=== PATIENT | male | born 1965 | race Caucasian/White ===

== ENCOUNTER 2019-02-19 08:24 | Emergency (ER) | payer BC ==
[2019-02-19] MEDS ORDERED: HYDROCODONE/ACETAMINOPHEN 5-325 MG TABLET PO ONE (10:29)
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
--- NOTE | 2019-02-19 11:19 | RADIOLOGY REPORT (SQ) ---
EXAM DESCRIPTION: CHEST 2 VIEWS COMPLETED DATE/TIME: 02/19/2019 10:55 am REASON FOR STUDY: left rib pain, fall COMPARISON: None. TECHNIQUE: Frontal and lateral radiographic views of the chest acquired. NUMBER OF VIEWS: Two view. LIMITATIONS: None. FINDINGS: LUNGS AND PLEURA: Subsegmental atelectasis left base. No pneumothorax appreciated. MEDIASTINUM AND HILAR STRUCTURES: No masses or contour abnormalities. HEART AND VASCULAR STRUCTURES: Heart normal size. No evidence for failure. BONES: 7th left posterolateral minimally displaced rib fracture. Also likely the 8th. HARDWARE: None in the chest. OTHER: No other significant finding. IMPRESSION: Left rib fractures, at least 7th and 8th. No pneumothorax. Adjacent contusion/ subsegm ental atelectasis. TECHNICAL DOCUMENTATION: JOB ID: [id number] [employer]- All Rights Reserved Reading location - IP/workstation name: [email or web address]
--- NOTE | 2019-02-19 12:41 | RADIOLOGY REPORT (SQ) ---
EXAM DESCRIPTION: CT CHEST WITHOUT COMPLETED DATE/TIME: 02/19/2019 12:24 pm REASON FOR STUDY: confirmed left rib fx on left, fall COMPARISON: Same day chest radiograph TECHNIQUE: CT scan performed of the chest without intravenous contrast. Images reviewed with lung, soft tissue and bone windows. Reconstructed coronal and sagittal MPR images reviewed. All images st ored on PACS. All CT scanners at this facility use dose modulation, iterative reconstruction, and/or weight based d osing when appropriate to reduce radiation dose to as low as reasonably achievable (ALARA). [facility]: Dose Right [facility]: CareDose [facility]: Dose Right [facility]: Teradose 4D [facility]: Smart Sparkfly RADIATION DOSE: CT Rad equipment meets quality standard of care and radiation dose reduction techniq ues were employed. CTDIvol: 6.7 mGy. DLP: 271 mGy-cm. mGy. LIMITATIONS: No technical limitations. FINDINGS: LUNGS AND PLEURA: Linear bibasilar atelectasis, left greater than right. Otherwise, no fo kt consolidation, pleural effusion or pneumothorax. No pulmonary mass. HILAR AND MEDIASTINAL STRUCTURES: No identified masses or abnormal nodes. No obvious aneurysm. HEART AND VASCULAR STRUCTURES: No aneurysm. Mild scattered calcified plaque. No pericardial effusio n. UPPER ABDOMEN: No significant findings. Limited exam. THYROID AND OTHER SOFT TISSUES: No masses. No adenopathy. BONES: Mildly minimally displaced posterolateral left 7th rib fracture. Nondisplaced posterolateral left 8th rib fracture. Minimally displaced left 9th rib fracture. Displaced posterolateral left 10t h rib fracture by a 1 shaft width. Mildly displaced posterior left 11th rib fracture. No additional fracture or dislocation is visualized. Mild degenerative disc disease of the thoracic spine. HARDWARE: None in the chest. OTHER: Minimal amount of subcutaneous emphysema of the posterolateral inferior left hemithorax overly ing the aforementioned rib fractures. IMPRESSION: Left 7th through 11th rib fractures, as detailed above, with minimal overlying subcutane ous emphysema. No pneumothorax. TECHNICAL DOCUMENTATION: JOB ID: [id number] Quality ID # [id number]: Final reports with documentation of one or more dose reduction techniques (e.g., Au tomated exposure control, adjustment of the mA and/or kV according to patient size, use of iterative reconstruction technique) 2010 [employer]- All Rights Reserved Reading location - IP/workstation name: [email or web address]
[2019-02-19 12:44] LABS: ABSOLUTE LYMPHOCYTES (AUTO) 1.3 10^3/uL (0.5-4.7); ABSOLUTE MONOCYTES (AUTO) 0.9 10^3/uL (0.1-1.4); ABSOLUTE NEUT (AUTO) 6.8 10^3/uL (1.7-8.2); BASOPHILS % (AUTO) 0.5 % (0-2); EOSINOPHILS % (AUTO) 0.1 % (0-6); HEMATOCRIT 42.8 % (37.9-51.0); HEMOGLOBIN 14.5 g/dL (13.5-17.0); LYMPHOCYTES % (AUTO) 14.1 % (13-45); MEAN CORPUSCULAR HEMOGLOBIN 32.1 pg (27.0-33.4); MEAN CORPUSCULAR HGB CONC 33.9 g/dL (32.0-36.0); MEAN CORPUSCULAR VOLUME 95 fl (80-97); MONOCYTES % (AUTO) 9.6 % (3-13); PLATELET COUNT 214 10^3/uL (150-450); RED BLOOD COUNT 4.52 10^6/uL (4.35-5.55); RED CELL DISTRIBUTION WIDTH 13.4 % (11.5-14.0); SEGMENTED NEUTROPHILS % (AUTO) 75.7 % (42-78); TOTAL CELLS COUNTED % (AUTO) 100 %
[2019-02-19 12:48] LABS: APPEARANCE,URINE SLIGHTLY-CLOUDY; BILIRUBIN,URINE NEGATIVE (NEGATIVE); COLOR,URINE AMBER; GLUCOSE, URINE NEGATIVE (NEGATIVE); KETONES,URINE 20 mg/dL (NEGATIVE); LEUKOCYTE ESTERASE,URINE NEGATIVE (NEGATIVE); NITRITE,URINE NEGATIVE (NEGATIVE); PROTEIN,URINE NEGATIVE (NEGATIVE); URINE SPECIFIC GRAVITY 1.024
[2019-02-19 12:57] LABS: ALANINE AMINOTRANSFERASE 54 U/L (21-72); ALBUMIN 4.8 g/dL (3.5-5.0); ALKALINE PHOSPHATASE 82 U/L (38-126); ANION GAP 14 (5-19); ASPARTATE AMINO TRANSFERASE 45 U/L (17-59); BILIRUBIN,DIRECT 0.4 mg/dL (0.0-0.4); BLOOD UREA NITROGEN 11 mg/dL (7-20); CALCIUM 9.7 mg/dL (8.4-10.2); CARBON DIOXIDE 25 mmol/L (22-30); CHLORIDE 97 mmol/L (98-107); GLUCOSE 79 mg/dL (75-110); POTASSIUM 5.9 mmol/L (3.6-5.0); TOTAL PROTEIN 7.6 g/dL (6.3-8.2)
--- NOTE | 2019-02-19 14:14 | PDOC CONSULTATION ---
Consultation Consult Date: 02/19/19 Provider Consulted: BARNEY GIBBS Consult reason:: left rib fractures History of Present Illness History of Present Illness: JASON ESCUDERO is a 53 year old male who tripped on 3 steps and fell on his left ribcage yesterday at 2 pm. C/O severe left back pains worse on coughing and difficulty sleeping because of the pains. Smokes a ppd. Past Medical History Cardiac Medical History: Reports: None Pulmonary Medical History: Reports: None EENT Medical History: Reports: None Neurological Medical History: Reports: None Endocrine Medical History: Reports: None Renal/ Medical History: Reports: None Malignancy Medical History: Reports: None GI Medical History: Reports: None Musculoskeltal Medical History: Reports: None Skin Medical History: Reports: None Psychiatric Medical History: Reports: None Traumatic Medical History: Reports: None Infectious Medical History: Reports: None Social History Lives with: Spouse/Significant other Smoking Status: Current Every Day Smoker Family History Family History: None Parental Family History Reviewed: Yes Children Family History Reviewed: No Sibling(s) Family History Reviewed.: No Medication/Allergy Allergies/Adverse Reactions: No Known Allergies Allergy (Unverified 02/19/19 08:25) Review of Systems Constitutional: PRESENT: as per HPI Respiratory: PRESENT: other - left back pains Gastrointestinal: PRESENT: other - no pains Genitourinary: PRESENT: other - no dysuria Musculoskeletal: PRESENT: back pain Neurological: PRESENT: other - no weakness Psychiatric: PRESENT: other - no anxiety Hematologic/Lymphatic: PRESENT: other - no easy bruising Physical Exam Vital Signs: Temp Pulse Resp BP Pulse Ox 98.3 F 94 16 151/82 H 100 02/19/19 11:36 02/19/19 11:36 02/19/19 11:36 02/19/19 11:36 02/19/19 11:36 Intake & Output 02/18/19 02/19/19 02/20/19 06:59 06:59 06:59 Weight 68.7 kg General appearance: PRESENT: no acute distress Head exam: PRESENT: atraumatic Eye exam: PRESENT: conjunctiva pink Mouth exam: PRESENT: moist Neck exam: PRESENT: full ROM Respiratory exam: PRESENT: chest wall tenderness - left back with mild bruising. Has tenderness Cardiovascular exam: PRESENT: RRR Pulses: PRESENT: normal radial pulses Vascular exam: PRESENT: normal capillary refill Rectal exam: PRESENT: deferred Extremities exam: PRESENT: full ROM Musculoskeletal exam: PRESENT: ambulatory Neurological exam: PRESENT: alert, oriented to person, oriented to place, orie nted to time, oriented to situation Psychiatric exam: PRESENT: appropriate affect Skin exam: PRESENT: normal color, warm Results Laboratory Results: 02/19/19 12:04 02/19/19 12:04 02/19/19 02/19/19 02/19/19 12:04 12:04 12:11 WBC 9.0 RBC 4.52 Hgb 14.5 Hct 42.8 MCV 95 MCH 32.1 MCHC 33.9 RDW 13.4 Plt Count 214 Seg Neutrophils % 75.7 Lymphocytes % 14.1 Monocytes % 9.6 Eosinophils % 0.1 Basophils % 0.5 Absolute Neutrophils 6.8 Absolute Lymphocytes 1.3 Absolute Monocytes 0.9 Absolute Eosinophils 0.0 Absolute Basophils 0.0 Sodium 136.0 L Potassium 5.9 H Chloride 97 L Carbon Dioxide 25 Anion Gap 14 BUN 11 Creatinine 0.79 Est GFR ( Amer) > 60 Est GFR (Non-Af Amer) > 60 Glucose 79 Calcium 9.7 Total Bilirubin 1.0 AST 45 ALT 54 Alkaline Phosphatase 82 Total Protein 7.6 Albumin 4.8 Urine Color RAMAKRISHNA Urine Appearance SLIGHTLY-CLOUDY Urine pH 5.0 Ur Specific [place] 1.024 Urine Protein NEGATIVE Urine Glucose (UA) NEGATIVE Urine Ketones 20 H Urine Blood NEGATIVE Urine Nitrite NEGATIVE Ur Leukocyte Esterase NEGATIVE Urine WBC (Auto) 1 Urine RBC (Auto) 1 Impressions: Chest X-Ray 02/19/19 10:27 IMPRESSION: Left rib fractures, at least 7th and 8th. No pneumothorax. Adjacent contusion/ subsegmental atelectasis. Chest CT 02/19/19 11:56 IMPRESSION: Left 7th through 11th rib fractures, as detailed above, with minimal overlying subcutaneous emphysema. No pneumothorax. Assessment & Plan - Diagnosis (1) Ribs, multiple fractures Qualifiers: Encounter type: initial encounter Fracture type: closed Laterality: left Qualified Code(s): S22.42XA - Multiple fractures of ribs, left side, initial encounter for closed fracture Is this a current diagnosis for this admission?: Yes - Time Time Spent: 30 to 50 Minutes - Plan Summary Plan Summary: A/ 53 yo with fx left ribs 7th to 11th from trauma yesterday. XRAYs and CT scan showed these fx but no effusion or pneumothorax Pulse Ox is 100% on RA P/ OK to send home on pain meds Encourage Incentive Spirometry. Give apparatus. Talked to patient and about taking pain meds to allow incentive spirometry,coughing to prevent pneumonia Will need a follow up CXR in 48-72 hrs. Any fever,increasing pains or shortness of breath to come back right away to ER. D/W JORGE L
[2019-02-19 14:36] VITALS: BP 144/75
== END 2019-02-19 14:34 | disposition home or self-care (01) ==
LOC: ER 08:24
DX: S22.42XA Multiple fractures of ribs, left side, initial encounter for closed fracture (principal); R07.81 Pleurodynia; W01.0XXA Fall on same level from slipping, tripping and stumbling without subsequent striking against object, initial encounter; F17.210 Nicotine dependence, cigarettes, uncomplicated
CPT/HCPCS: 36415; 71046; 71250; 80053; 81001; 85025; 99284

== ENCOUNTER 2019-02-21 06:26 | Emergency (ER) | payer BC ==
--- NOTE | 2019-02-21 07:32 | RADIOLOGY REPORT (SQ) ---
EXAM DESCRIPTION: XR RIBS UNILATERAL WITH CHEST COMPLETED DATE/TME: 02/21/2019 06:56 CLINICAL HISTORY: 53 years Male, follow up from multiple rib fx COMPARISON: CT, two days prior. NUMBER OF VIEWS/TECHNIQUE: 4 FINDINGS: Mildly displaced left seventh-11th rib fractures, small left lower lobar subpleural pulmonary contusion. No significant change. No pneumothorax. No acute cardiopulmonary findings. IMPRESSION: Mildly displaced left seventh-11th rib fractures, small left lower lobar subpleural pulmonary contusion. No significant change.
--- NOTE | 2019-02-21 10:51 | ER Document Report ---
ED Respiratory Problem - General Chief Complaint: Rib Pain Stated Complaint: FOLLOW UP Time Seen by Provider: 02/21/19 10:35 TRAVEL OUTSIDE OF THE [place] IN LAST 30 DAYS: No - HPI Notes: Patient is a 53-year-old male who presents to the emergency department for a repeat chest x-ray and a repeat potassium level. Patient was seen here 2 days ago and diagnosed with multiple rib fractures on the left. Patient states ribs 7 through 11 were fractured after a fall. Patient states he has been using his incentive spirometer regularly over the past 2 days. Patient states that the Bouse is not helping with his discomfort and reports muscle spasms around the left rib area. Patient states he has been hydrating and drinking plenty of fluids. Patient denies shortness of breath or cough. Patient states the left rib pain is worse with cough or movement. - Related Data Allergies/Adverse Reactions: No Known Allergies Allergy (Verified 02/21/19 08:50) Past Medical History - General Information source: Patient - Social History Smoking Status: Current Every Day Smoker Frequency of alcohol use: Heavy Drug Abuse: None Family History: None Patient has suicidal ideation: No Patient has homicidal ideation: No - Past Medical History Cardiac Medical History: Reports: None Pulmonary Medical History: Reports: None EENT Medical History: Reports: None Neurological Medical History: Reports: None Endocrine Medical History: Reports: None Renal/ Medical History: Reports: None. Denies: Hx Peritoneal Dialysis Malignancy Medical History: Reports None GI Medical History: Reports: None Musculoskeletal Medical History: Reports None Skin Medical History: Reports None Psychiatric Medical History: Reports: None Traumatic Medical History: Reports: None Infectious Medical History: Reports: None Past Surgical History: Reports: Hx Oral Surgery Review of Systems - Review of Systems Constitutional: No symptoms reported EENT: No symptoms reported Cardiovascular: No symptoms reported Respiratory: See HPI Gastrointestinal: No symptoms reported Genitourinary: No symptoms reported Male Genitourinary: No symptoms reported Musculoskeletal: No symptoms reported Skin: No symptoms reported Hematologic/Lymphatic: No symptoms reported Neurological/Psychological: No symptoms reported Physical Exam - Vital signs Vitals: Temp Pulse Resp BP Pulse Ox 97.7 F 102 H 18 132/79 H 99 02/21/19 06:34 02/21/19 06:34 02/21/19 06:34 02/21/19 06:34 02/21/19 06:34 - Notes Notes: GENERAL: Well-appearing, well-nourished and in no acute distress. HEAD: Atraumatic, normocephalic. EYES: Pupils equal round and reactive to light, extraocular movements intact, sclera anicteric, conjunctiva are normal. ENT: Moist mucous membranes. NECK: Normal range of motion, supple without lymphadenopathy or JVD. LUNGS: Breath sounds clear to auscultation bilaterally and equal. No wheezes rales or rhonchi. HEART: Regular rate and rhythm without murmurs, rubs or gallops. ABDOMEN: Soft, nontender, normoactive bowel sounds. No guarding, no rebound. No masses appreciated. BACK: No cervical, thoracic, lumbar midline tenderness. No saddle anesthesia, normal distal neurovascular exam. Ecchymosis noted around the posterior left leg rib cage. GENITOURINARY: Deferred. EXTREMITIES: Normal range of motion, no pitting or edema. No clubbing or cyanosis. NEUROLOGICAL: Cranial nerves II through XII grossly intact. Normal speech, normal gait. PSYCH: Normal mood, normal affect. SKIN: Warm, Dry, normal turgor, no rashes or lesions noted. Course - Re-evaluation Re-evalutation: 02/21/19 Upon initial evaluation patient sitting upright in wheelchair. Patient is in position of comfort. Patient is in no acute distress at this time. Patient reports that he has been hydrating over the past few days and drinking plenty of fluids. Patient reports that he uses his incentive spirometer multiple times without difficulty. Patient does report having muscle spasms to the area with certain position changes. Will plan to discharge home with additional pain medication but educated patient and to establish PCP and have follow up this week if more pain medication needed as only a certain amount of days can be prescribed from the ER. works at [facility] [employer] and states she can get him a new patient appointment this week. - Vital Signs Vital signs: Temp Pulse Resp BP Pulse Ox 98.0 F 89 18 129/79 H 100 02/21/19 11:18 02/21/19 11:18 02/21/19 11:18 02/21/19 11:18 02/21/19 11:18 - Laboratory Result Diagrams: 02/21/19 09:51 Laboratory results interpreted by me: Potassium level 5.0, much improved from potassium level of 5.9 two days ago. - Diagnostic Test Radiology reviewed: Reports reviewed Discharge - Discharge Clinical Impression: Multiple rib fractures Qualifiers: Encounter type: subsequent encounter Fracture type: closed Laterality: left Fracture healing: with routine healing Qualified Code(s): S22.42XD - Multiple fractures of ribs, left side, subsequent encounter for fracture with routine healing Condition: Stable Disposition: HOME, SELF-CARE Additional Instructions: Today you were seen in the emergency department for a repeat chest XRAY after being diagnosed with multiple rib fractures on the left. The XRAY did not show a pneumonia, puncture of the lung or significant change from previous imaging. Continue to use your incentive spirometer to help expand the lungs and prevent pneumonia. I will prescribe additional pain medication as well as a muscle relaxer to help with the muscle spasms that you report. Limit cigarette smoking. Please make a follow up appointment for re-evaluation and for additional pain medication as it can take weeks for the rib fractures to heal. We also rechecked your potassium level which was significantly better at 5.0 (this is the high end of the normal range). Continue drinking plenty of fluids and hydrating. Rib Injuries and Fractures You have been diagnosed as having either bruised or broken ribs. These two injuries are treated in the same way. It will usually take four to six weeks for these injured ribs to heal. Sometimes, rib belts or anesthetic injections of the chest wall help reduce the pain. If you are using a rib belt, you should cough or take a deep breath at least every hour or two to prevent lung complications. You should not engage in any strenuous physical activity until released by your physician. The usual rule is "if it hurts, don't do it." Rib fractures can lead to serious lung complications including lung collapse, hemorrhage, and pneumonia. You should call the physician or return at once if any of the following occur: (1) Fever or chills. (2) Persistent cough, coughing up blood, or shortness of breath. (3) Increasing pain. (4) Weakness, lightheadedness, or fainting. Prescriptions: Diazepam [Valium 5 mg Tablet] 1 tab PO TID PRN #10 tablet PRN Reason: Oxycodone HCl/Acetaminophen [Percocet 5-325 mg Tablet] 1 tab PO Q6 #15 tablet Forms: Smoking Cessation Education
[2019-02-21] MEDS ORDERED: OXYCODONE-ACETAMINOPHEN 5-325 MG TABLET PO ONE (10:54)
[2019-02-21] MEDS ORDERED: DIAZEPAM 5 MG TABLET PO ONE (10:54)
[2019-02-21 11:22] VITALS: BP 129/79
== END 2019-02-21 11:22 | disposition home or self-care (01) ==
LOC: ER 06:26
DX: S22.42XD Multiple fractures of ribs, left side, subsequent encounter for fracture with routine healing (principal); W19.XXXD Unspecified fall, subsequent encounter; M62.838 Other muscle spasm; F17.200 Nicotine dependence, unspecified, uncomplicated
CPT/HCPCS: 36415; 84132; 99283

== ENCOUNTER 2019-07-15 10:31 | Day surgery (SDC) | payer BC ==
[~2019-07-15 10:31] MED LIST: ALBUTEROL SULFATE 0.083% NEB 2.5 MG/3 ML AMPUL NEB ONE; FENTANYL CITRATE INJ/PF 100 MCG/2 ML AMPUL ONE; LACTATED RINGERS 1000 ML IV PRN; LIDOCAINE 0.5% INJ-PF (5 MG/ML) 50 ML SDV SUBCUT PRN; MIDAZOLAM 2 MG/2 ML INJ ONE; PROPOFOL INJ 200 MG/20 ML VIAL IV ONE
[2019-07-15] MEDS ORDERED: MIDAZOLAM 2 MG/2 ML INJ ONE (11:26)
[2019-07-15] MEDS ORDERED: RINGERS SOLUTION,LACTATED 1,000 ML IV ONE (11:45)
[2019-07-15] MEDS ORDERED: PROPOFOL INJ 200 MG/20 ML VIAL IV ONE (12:14)
[2019-07-15] MEDS ORDERED: FENTANYL CITRATE INJ/PF 100 MCG/2 ML AMPUL IV PRN ×3 (12:51)
[2019-07-15] MEDS ORDERED: DIPHENHYDRAMINE HCL 50 MG/ML VIAL IV PRN (12:51)
[2019-07-15] MEDS ORDERED: MEPERIDINE HCL/PF INJ 25 MG/1 ML DISP.SYRIN IV PRN (12:51)
[2019-07-15] MEDS ORDERED: MORPHINE SULFATE 10 MG/ML INJ IV PRN (12:51)
[2019-07-15] MEDS ORDERED: PROMETHAZINE HCL INJ 25 MG/1 ML VIAL IV PRN ×2 (12:51)
[2019-07-15 14:35] VITALS: BP 125/77
--- NOTE | 2019-07-18 07:43 | Discharge Summary ---
Discharge Summary (SDC) - Discharge Final Diagnosis: Colon polyp, small internal hemorrhoids. Date of Surgery: 07/15/19 Discharge Date: 07/15/19 Condition: Stable Forms: ASU Anesthesia D/C Instruction, Discharge POC-Surgical Service Treatment or Instructions: Discharge home. Diet as tolerated. Activity: Nonstrenuous. Follow-up with me in 7 to 10 days at [facility]. Referrals: PAULINO MEZA MD [Primary Care Provider] - REIAN RITCHIE MD [ACTIVE STAFF] - 07/25/19 11:00 am Discharge Diet: As Tolerated Respiratory Treatments at Home: Deep Breathing/Coughing, Incentive Spirometer Discharge Activity: Balance Activity w/Rest Home Care Assistance: None Needed Report the Following to Your Physician Immediately: Shortness of Breath, Nausea, Vomiting, Increase in Pain, Fever over 101 Degrees, Unusual Bleeding, Redness, Warmth, Drainage-Foul Smelling
--- NOTE | 2019-07-18 07:47 | Operative Report ---
Nonrecallable Operative Report DATE OF SURGERY: 07/15/19 PREOPERATIVE DIAGNOSIS: Screening for malignancy POSTOPERATIVE DIAGNOSIS: 1. Small colon polyp in the a sending colon. 2. Small, nonbleeding internal hemorrhoids. OPERATION: 1. Colonoscopy to the cecum. 2. Snare polypectomy of small a sending colon polyp. SURGEON: REINA RITCHIE ANESTHESIA: LMAC TISSUE REMOVED OR ALTERED: Small a sending colon polyp COMPLICATIONS: None apparent ESTIMATED BLOOD LOSS: Minimal PROCEDURE: Procedure in detail: After informed consent was obtained, the patient was brought into the operating room and laid in the left lateral decubitus position. The endoscope was inserted into the rectum. The scope was passed up the rec debi, sigmoid colon, descending colon, across the transverse colon, down the ascending colon, and into the cecum. The ileocecal valve and appendiceal orifice were identified. The scope was then withdrawn, circumferentially noting the mucosa. The prep was very good. The scope was withdrawn into the ascending colon. A small, diminutive polyp was identified. It was removed via cold snare polypectomy in its entirety. The scope was then withdrawn past the transverse colon, descending colon, sigmoid colon, and into the rectum. A retroflexion maneuver was performed in the rectum, noting small, nonbleeding internal hemorrhoids. The scope was straightened, air was suctioned from the rectum, the scope was removed, and the procedure was concluded. All sponge, instrument, and needle counts were correct. Condition: Stable.
== END 2019-07-15 14:15 | disposition home or self-care (01) ==
LOC: OROUT 10:31
PROVIDERS: ATTEND Surgery
DX: Z12.11 Encounter for screening for malignant neoplasm of colon (principal); D12.2 Benign neoplasm of ascending colon; K64.8 Other hemorrhoids; Z87.891 Personal history of nicotine dependence
CPT/HCPCS: 45385; 88305 ×2; 00811; J2250; J2704; 811; J3010

== ENCOUNTER → 2020-10-13 | Outpatient (CLI) | payer BC ==
[~2020-10-13] MED LIST changes: -ALBUTEROL SULFATE 0.083% NEB 2.5 MG/3 ML AMPUL NEB ONE; +COVID-19 VACCINE (PFIZER)/PF 30 MCG/0.3 ML VIAL IM ONE; +EPINEPHRINE INJ/PF 1 MG/1 ML AMPULE IM PRN; -FENTANYL CITRATE INJ/PF 100 MCG/2 ML AMPUL ONE; -LACTATED RINGERS 1000 ML IV PRN; -LIDOCAINE 0.5% INJ-PF (5 MG/ML) 50 ML SDV SUBCUT PRN; -MIDAZOLAM 2 MG/2 ML INJ ONE; -PROPOFOL INJ 200 MG/20 ML VIAL IV ONE
== END ==
LOC: EMPHEALTH 17:36
PROVIDERS: ATTEND Internal Medicine
DX: Z23 Encounter for immunization (principal)
CPT/HCPCS: 91300